=== PATIENT | female | born 1995 | race Caucasian/White ===

== ENCOUNTER 2019-06-23 13:58 | Emergency (ER) | payer OTHER ==
[2019-06-23 14:27] VITALS: BP 125/80; PULSE 71; RESP 20; TEMP 98.3
--- NOTE | 2019-06-23 15:55 | ED ---
Recheck HPI - General Chief Complaint: Needlestick/Exposure Stated Complaint: [facility]-Needlestick Time Seen by Provider: 06/23/19 14:43 Source: patient Mode of arrival: ambulatory Limitations: no limitations - History of Present Illness Initial Comments: Patient is a 24-year-old female presenting to emergency Department for a needlestick exposure injury. 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 Patient states she did notice a small amount of blood from her thumb. Patient does know the source however he is uncooperative. Patient denies any fever or chills. She is up-to-date with her vaccines. She has no other complaints at this time. Upon arrival to the ER, vitals are stable. - Related Data Allergies Allergy/AdvReac Type Severity Reaction Status Date / Time No Known Allergies Allergy Verified 06/23/19 14:27 Review of Systems ROS Statement: Those systems with pertinent positive or pertinent negative responses have been documented in the HPI. ROS Other: All systems not noted in ROS Statement are negative. Past Medical History Past Medical History: No Reported History History of Any Multi-Drug Resistant Organisms: None Reported Past Surgical History: No Surgical Hx Reported Past Psychological History: No Psychological Hx Reported Smoking Status: Never smoker Past Alcohol Use History: Occasional Past Drug Use History: None Reported General Exam - General Exam Comments Initial Comments: GENERAL: Well-appearing, well-nourished and in no acute distress. HEAD: Atraumatic, normocephalic. EYES: Pupils equal round and reactive to light, extraocular movements intact, sclera anicteric, conjunctiva are normal. ENT: TMs normal, nares patent, oropharynx clear without exudates. Moist mucous membranes. NECK: Normal range of motion, supple without lymphadenopathy or JVD. LUNGS: Breath sounds clear to auscultation bilaterally and equal. No wheezes rales or rhonchi. HEART: Regular rate and rhythm without murmurs, rubs or gallops. ABDOMEN: Soft, nontender, normoactive bowel sounds. No guarding, no rebound. No masses appreciated. : Deferred EXTREMITIES: Normal range of motion, no pitting or edema. No clubbing or cyanosis. NEUROLOGICAL: Normal speech, normal gait. PSYCH: Normal mood, normal affect. SKIN: Warm, Dry, normal turgor, no rashes. A very fine needle stick injury noted on the left thumb, palmar aspect. Active bleeding. No signs of erythema. Limitations: no limitations Course Vital Signs 06/23/19 06/23/19 14:23 16:08 Temperature 98.3 F 98.3 F Pulse Rate 71 71 Respiratory 20 20 Rate Blood Pressure 125/80 125/80 O2 Sat by Pulse 99 99 Oximetry Medical Decision Making - Medical Decision Making Patient is a 24-year-old female presenting with a needlestick injury to her left thumb, palmar aspect. There is no active bleeding or surrounding erythema. Her vaccines are up-to-date. Patient is declining HIV prophylactic at this time. Her blood was drawn. Patient is stable for discharge at this time. Return parameters were discussed with the patient she verbalized understanding. All questions were answered. Case discussed with Dr. Still. Disposition Clinical Impression: Needlestick injury of finger of left hand Disposition: HOME SELF-CARE Condition: Stable Instructions (If sedation given, give patient instructions): Needle Stick Injuries (ED) Additional Instructions: Please return to the Emergency Department if symptoms worsen or any other concerns. Is patient prescribed a controlled substance at d/c from ED?: No Referrals: None,Stated [Primary Care Provider] - 1-2 days
== END 2019-06-23 16:08 | disposition home or self-care (01) ==
LOC: EC 13:58
DX: S69.92XA Unspecified injury of left wrist, hand and finger(s), initial encounter (principal); Z77.21 Contact with and (suspected) exposure to potentially hazardous body fluids; W46.1XXA Contact with contaminated hypodermic needle, initial encounter; Y92.69 Other specified industrial and construction area as the place of occurrence of the external cause; Y99.0 Civilian activity done for income or pay
CPT/HCPCS: 99283